=== PATIENT | female | born 1980 | race Two or more races ===

== ENCOUNTER 2016-09-23 08:52 | Emergency (ER) | payer BC, OTHER ==
[2016-09-23] MEDS ORDERED: RX INFO: IV CONTRAST WAS GIVEN 1 EACH MISC MISCELLANE PRN (09:04)
[2016-09-23] MEDS ORDERED: SODIUM CHLORIDE 0.9% 1,000 ML IV STA (09:04)
--- NOTE | 2016-09-23 09:09 | ED ---
Eye Problem HPI - General Chief complaint: Eye Problems Stated complaint: Eye swollen Time Seen by Provider: 09/23/16 08:59 Source: patient, RN notes reviewed Mode of arrival: ambulatory Limitations: no limitations - History of Present Illness Initial comments: 36-year-old female presents to the emergency Department chief complaint of right eyelid swelling. Patient states that she felt like she had a stye about a day ago but then it turned into her whole eyelid being swollen. Patient states that it hurts to move her right eye. Patient denies any changes in vision. Patient denies any fever chills associated with this patient does admit to history of diabetes. Patient states that she was concerned so she thought that she should be evaluated. Patient states that she is not currently having any other symptoms at this time. Patient denies any recent fever, chills , shortness of breath, chest pain, back pain, abdominal pain, nausea vomiting, numbness or tingling, dysuria or hematuria, constipation or diarrhea, headaches or visual changes, or any other current symptoms. - Related Data Home Medications Medication Instructions Recorded Confirmed Atorvastatin Calcium [Lipitor] 10 mg PO DAILY 10/10/13 09/23/16 Lisinopril [Zestril] 2.5 mg PO DAILY 10/10/13 09/23/16 metFORMIN HCL [Glucophage] 500 mg PO TID 10/10/13 09/23/16 Insulin Glargine,Hum.rec.anlog 30 unit SQ DAILY 05/04/15 09/23/16 [Toujeo Solostar] sitaGLIPtin [Januvia] 100 mg PO DAILY 05/04/15 09/23/16 Previous Rx's Medication Instructions Recorded Acetaminophen-Codeine 300-30mg 1 tab PO Q4H PRN #20 tablet 05/04/15 [Tylenol #3] Cyclobenzaprine [Flexeril] 10 mg PO TID PRN #15 tab 05/04/15 Cephalexin [Keflex] 500 mg PO Q6HR #40 cap 09/23/16 Clindamycin [Cleocin] 450 mg PO Q8HR #90 capsule 09/23/16 Allergies Allergy/AdvReac Type Severity Reaction Status Date / Time eye antibiotic drops Allergy Swelling Uncoded 09/23/16 08:57 Review of Systems ROS Statement: Those systems with pertinent positive or pertinent negative responses have been documented in the HPI. ROS Other: All systems not noted in ROS Statement are negative. Past Medical History Past Medical History: Diabetes Mellitus, Hyperlipidemia History of Any Multi-Drug Resistant Organisms: None Reported Past Surgical History: No Surgical Hx Reported Past Anesthesia/Blood Transfusion Reactions: No Reported Reaction Past Psychological History: No Psychological Hx Reported Smoking Status: Never smoker Past Alcohol Use History: Occasional Past Drug Use History: Marijuana General Exam Limitations: no limitations General appearance: alert, in no apparent distress Head exam: Present: atraumatic, normocephalic, normal inspection Eye exam: Present: PERRL, EOMI (With pain to the right eye), periorbital swelling (Of the right eye), periorbital tenderness (Of the right eye). Absent : scleral icterus, conjunctival injection Pupils: Present: normal accommodation Neck exam: Present: normal inspection. Absent: tenderness, meningismus, lymphadenopathy Respiratory exam: Present: normal lung sounds bilaterally. Absent: respiratory distress, wheezes, rales, rhonchi, stridor Cardiovascular Exam: Present: regular rate, normal rhythm, normal heart sounds. Absent: systolic murmur, diastolic murmur, rubs, gallop, clicks Neurological exam: Present: alert, oriented X3 Psychiatric exam: Present: normal affect, normal mood Skin exam: Present: warm, dry, intact, normal color. Absent: rash Course Vital Signs 09/23/16 08:53 Temperature 97.9 F Pulse Rate 86 Respiratory 20 Rate Blood Pressure 156/82 O2 Sat by Pulse 100 Oximetry Medical Decision Making - Medical Decision Making 36-year-old female presents with what appears to be a preseptal cellulitis of the right eye. At this time patient's antibiotics were initiated IV. We did give her steroids as well. We will give her double dose treatment of antibiotics for home. We did discuss close follow-up with her doctor return parameters. Patient stated that she understood and all her questions have been answered. She will be discharged. - Lab Data Result diagrams: 09/23/16 09:40 09/23/16 09:40 Lab Results 09/23/16 09/23/16 09/23/16 Range/Units 09:40 09:40 09:40 WBC 10.7 H (3.8-10.6) k/uL RBC 4.77 (3.80-5.40) m/uL Hgb 15.1 (11.4-16.0) gm/dL Hct 40.7 (34.0-46.0) % MCV 85.2 (80.0-100.0) fL MCH 31.7 (25.0-35.0) pg MCHC 37.1 H (31.0-37.0) g/dL RDW 13.2 (11.5-15.5) % Plt Count 231 (150-450) k/uL Neutrophils % 62 % Lymphocytes % 29 % Monocytes % 5 % Eosinophils % 2 % Basophils % 1 % Neutrophils # 6.6 (1.3-7.7) k/uL Lymphocytes # 3.1 (1.0-4.8) k/uL Monocytes # 0.6 (0-1.0) k/uL Eosinophils # 0.2 (0-0.7) k/uL Basophils # 0.1 (0-0.2) k/uL Sodium 138 (137-145) mmol/L Potassium 4.2 (3.5-5.1) mmol/L Chloride 101 (98-107) mmol/L Carbon Dioxide 26 (22-30) mmol/L Anion Gap 11 mmol/L BUN 12 (7-17) mg/dL Creatinine 0.40 L (0.52-1.04) mg/dL Est GFR (MDRD) Af Amer >60 (>60 ml/min/1.73 sqM) Est GFR (MDRD) Non-Af >60 (>60 ml/min/1.73 sqM) Glucose 342 H (74-99) mg/dL Plasma Lactic Acid Manfred 1.6 (0.7-2.0) mmol/L Calcium 9.7 (8.4-10.2) mg/dL Total Bilirubin 0.8 (0.2-1.3) mg/dL AST 20 (14-36) U/L ALT 35 (9-52) U/L Alkaline Phosphatase 101 (38-126) U/L Total Protein 7.8 (6.3-8.2) g/dL Albumin 4.3 (3.5-5.0) g/dL - Radiology Data Radiology results: report reviewed, image reviewed Disposition Clinical Impression: Preseptal cellulitis of right eye Disposition: HOME SELF-CARE Condition: Stable Instructions: Periorbital Cellulitis in Adults (ED) Additional Instructions: Please use medication as discussed. Please follow up with family doctor if symptoms have not improved over the next two days. Please return to the emergency room if your symptoms increase or worsen or for any other concerns. Prescriptions: Cephalexin [Keflex] 500 mg PO Q6HR #40 cap Clindamycin [Cleocin] 450 mg PO Q8HR #90 capsule Referrals: Elizabeth Greer MD [Primary Care Provider] - 1-2 days Time of Disposition: 10:54
[2016-09-23 09:55] LABS: Basophils # (A) 0.1 k/uL (0-0.2); Basophils % (A) 1 %; CH 30.6; CHCM 36.1; Eosinophils # (A) 0.2 k/uL (0-0.7); Eosinophils % (A) 2 %; HCT 40.7 % (34.0-46.0); HDW 2.88; HGB 15.1 gm/dL (11.4-16.0); Luc # (Auto) 0.18; Luc % (Auto) 2; Lymphocytes # (A) 3.1 k/uL (1.0-4.8); Lymphocytes % (A) 29 %; MCH 31.7 pg (25.0-35.0); MCHC 37.1 g/dL (31.0-37.0); MCV 85.2 fL (80.0-100.0); Mean Platelet Volume 7.7; Monocytes # (A) 0.6 k/uL (0-1.0); Monocytes % (A) 5 %; Neutrophils # (A) 6.6 k/uL (1.3-7.7); Neutrophils % (A) 62 %; RBC 4.77 m/uL (3.80-5.40); RDW 13.2 % (11.5-15.5); WBC 10.7 k/uL (3.8-10.6); WBC (Perox) 9.74
[2016-09-23 10:01] LABS: ALT 35 U/L (9-52); AST 20 U/L (14-36); Alkaline Phosphatase 101 U/L (38-126); Anion Gap 11 mmol/L; Blood Urea Nitrogen 12 mg/dL (7-17); Calcium 9.7 mg/dL (8.4-10.2); Carbon Dioxide 26 mmol/L (22-30); Chloride 101 mmol/L (98-107); Glucose 342 mg/dL (74-99); Non-African American GFR(MDRD) >60 (>60 ml/min/1.73 sqM); Potassium 4.2 mmol/L (3.5-5.1); Sodium 138 mmol/L (137-145); Total Bilirubin 0.8 mg/dL (0.2-1.3); Total Protein 7.8 g/dL (6.3-8.2)
--- NOTE | 2016-09-23 10:43 | CT ---
EXAMINATION TYPE: CT orbits w con DATE OF EXAM: 09/23/2016 COMPARISON: NONE HISTORY: Right sided eye swelling and redness CT DLP: 423 mGycm Automated exposure control for dose reduction was used. Contrast-enhanced CT of the orbits was performed with coronal reconstruction obtained. CONTRAST: Performed with IV Contrast, patient injected with 100 mL of Omnipaque 300. FINDINGS: There is right periorbital\preseptal soft tissue thickening and mild enhancement compatible with pres eptal cellulitis. There is currently no evidence for post septal cellulitis at this time. The globes are intact and symmetric bilaterally as are the optic nerves and extraocular musculature. Retroconal fat is symmetric and unremarkable. No evidence for abscess. No bony destructive process. Paranasal si nuses are well-aerated. Visualized intracranial structures are within normal limits. IMPRESSION: FINDINGS FELT TO REFLECT RIGHT-SIDED PRESEPTAL CELLULITIS.
[2016-09-23] MEDS ORDERED: methylPREDNISolone SOD SUCCI 125 MG/2 ML VIAL IV STA (10:47)
[2016-09-23] MEDS ORDERED: CLINDAMYCIN 900 MG in DEXTROSE 5% IN WATER 50 ML IVPB STA ×2 (10:54)
[2016-09-23 11:44] VITALS: BP 130/71; PULSE 88; RESP 15; TEMP 97.4
== END 2016-09-23 12:25 | disposition home or self-care (01) ==
LOC: EC 08:52
DX: L03.213 Periorbital cellulitis (principal); E11.9 Type 2 diabetes mellitus without complications; E78.5 Hyperlipidemia, unspecified; Z88.8 Allergy status to other drugs, medicaments and biological substances; Z79.4 Long term (current) use of insulin; Z79.84 Long term (current) use of oral hypoglycemic drugs; Z79.899 Other long term (current) drug therapy
CPT/HCPCS: 99284; 96365; 96367; 96375; 96361; 36415; 80053; 83605; 85025; 87040; 70481; J2930; J0696; Q9967

== ENCOUNTER → 2017-09-10 | Outpatient (CLI) | payer BC ==
[2017-09-10 10:24] LABS: Blood Urea Nitrogen 15 mg/dL (7-17); Potassium 4.7 mmol/L (3.5-5.1)
== END | disposition home or self-care (01) ==
LOC: LABPAT 09:23
PROVIDERS: ATTEND Surgery
DX: Z01.818 Encounter for other preprocedural examination (principal); Z01.812 Encounter for preprocedural laboratory examination; E10.9 Type 1 diabetes mellitus without complications; Z79.4 Long term (current) use of insulin
CPT/HCPCS: 36415; 82565; 84132; 84520; 93005

== ENCOUNTER 2017-09-13 07:27 | Day surgery (SDC) | payer BC ==
[2017-09-07 11:34] VITALS: BMI 42.1
[~2017-09-13 07:27] MED LIST: DEXAMETHASONE SOD PHOSPHATE 10 MG/ML 1 ML VIAL IV ONE; HEPARIN SODIUM,PORCINE 5,000 UNIT/ML 1 ML VIAL SQ ONE; LACTATED RINGERS 1,000 ML IV SCH; LIDOCAINE 1% 20 ML VIAL (10MG/ML) FOR IV START INTRADERMA PRN; MORPHINE SULFATE 2 MG/ML SYRINGE IV PRN; ONDANSETRON 4 MG/2 ML VIAL IVP ONE; SCOPOLAMINE 1.5MG/72HR PATCH TRANSDERM ONE
[2017-09-13 08:15] LABS: Glucose,Whole Blood 314 mg/dL (75-99)
[2017-09-13] MEDS ORDERED: INSULIN ASPART 100 UNIT/ML 1 ML 10 ML VIAL SQ ONE ×2 (08:17→11:32)
--- NOTE | 2017-09-13 09:15 | P.GSHP ---
History of Present Illness H&P Date: 09/13/17 Chief Complaint: Right upper quadrant pain This is a 37-year-old female who's had complaints of right upper quadrant pain. Her recent ultrasound shows evidence of cholelithiasis. She presents today for laparoscopic cholecystectomy Past Medical History Past Medical History: Diabetes Mellitus, Hyperlipidemia Additional Past Medical History / Comment(s): IBS. NERVE PAIN IN LEGS History of Any Multi-Drug Resistant Organisms: None Reported Past Surgical History: No Surgical Hx Reported Past Anesthesia/Blood Transfusion Reactions: No Reported Reaction Past Psychological History: No Psychological Hx Reported Smoking Status: Never smoker Past Alcohol Use History: Occasional, Rare Past Drug Use History: Marijuana - Past Family History Mother Family Medical History: No Reported History Medications and Allergies Home Medications Medication Instructions Recorded Confirmed Type Insulin Glargine [Lantus] 14 unit SQ HS 09/07/17 09/07/17 History Nf-Dicyclomine Dose Unknown 20 mg PO Q8HR PRN 09/07/17 09/13/17 History metFORMIN HCL [Glucophage] 2 tab PO BID 09/07/17 09/07/17 History Allergies Allergy/AdvReac Type Severity Reaction Status Date / Time eye antibiotic drops Allergy Swelling Uncoded 09/07/17 11:23 Surgical - Exam Vital Signs Temp Pulse Resp BP 97 F L 85 16 107/73 09/13/17 08:10 09/13/17 08:10 09/13/17 08:10 09/13/17 08:10 - General well developed, no distress - Eyes PERRL - ENT normal pinna - Neck no masses - Respiratory normal expansion - Cardiovascular Rhythm: regular - Abdomen Mild right upper quadrant pain Abdomen: soft, non tender Results - Labs Abnormal Lab Results - Last 24 Hours (Table) 09/13/17 Range/Units 08:10 POC Glucose (mg/dL) 314 H (75-99) mg/dL Assessment and Plan Assessment: Chronic cholecystitis Cholelithiasis We'll perform laparoscopic cholecystectomy
[2017-09-13] MEDS ORDERED: MIDAZOLAM 2 MG/2 ML VIAL ONE (09:36)
[2017-09-13] MEDS ORDERED: fentaNYL (PF) 50 MCG/ML 2 ML AMP ONE (09:36)
[2017-09-13] MEDS ORDERED: GLYCOPYRROLATE 0.2 MG/ML 2 ML VIAL ONE (09:36)
[2017-09-13] MEDS ORDERED: LIDOCAINE 1% INJ 10MG/ML (20 ML MDV) ONE (09:36)
[2017-09-13] MEDS ORDERED: SUCCINYLCHOLINE CHLORIDE 100 MG/5 ML SYR IV ONE (09:36)
[2017-09-13] MEDS ORDERED: HYDROmorphone (PF) 1 MG/ML ONE (09:36)
[2017-09-13] MEDS ORDERED: NEOSTIGMINE 1 MG/ML 10 ML VIAL ONE (09:36)
[2017-09-13] MEDS ORDERED: VECURONIUM 10 MG VIAL IV ONE (09:36)
[2017-09-13] MEDS ORDERED: PROPOFOL 10 MG/ML 20 ML VIAL IV ONE (09:36)
[2017-09-13] MEDS ORDERED: LIDOCAINE 1%-EPI 1:100,000 30 ML VIAL SQ ONE (09:59)
[2017-09-13] MEDS ORDERED: LACTATED RINGERS 1,000 ML IV ONE (10:20)
[2017-09-13 11:00] VITALS: TEMP 97.8
[2017-09-13 11:14] VITALS: RESP 16
[2017-09-13] MEDS ORDERED: HYDROmorphone 1 MG/ML 1 ML SYRINGE IVP ONE ×2 (11:20→11:31)
[2017-09-13 11:21] LABS: Glucose,Whole Blood 337 mg/dL (75-99)
--- NOTE | 2017-09-13 11:28 | P.OP ---
Date of Procedure: 09/13/17 Preoperative Diagnosis: Right upper quadrant pain Postoperative Diagnosis: Chronic cholecystitis Cholelithiasis Procedure(s) Performed: Laparoscopic cholecystectomy Anesthesia: MAC Surgeon: Jose Ramon Abebe Estimated Blood Loss (ml): 10 Pathology: other (gall bladder) Condition: stable Disposition: PACU Description of Procedure: The patient was placed on the operating table. The patient received a general endotracheal tube anesthesia. The patients abdomen was prepped and draped in the usual sterile fashion. Through an infraumbilical stab incision, the fascia of the anterior abdominal wall was grasped with a pair of Kochers and then the Veress needle was placed in the peritoneal cavity. Position of the Veress needle was confirmed with positive drop test. The abdomen was then insufflated. After adequate insufflation, the 10 mm trocar was placed in the peritoneal cavity. Following this the laparoscope was placed in the peritoneal cavity. The patient was placed in the head-up, right side up position and then a 5 mm trocar was placed in the right lateral and right subcostal position under direct visualization. A 8 mm trocar was placed in the epigastric position. The gallbladder was grasped in the fundus and infundibulum. Traction on the gallbladder was placed in the lateral and the cephalad positions. The triangle of Calot was visualized.. The cystic duct was bluntly dissected until the union of the cystic duct and common bile duct was seen. The cystic duct was then divided and sealed with the Harmonic scissors. A PDS Endoloop was then placed throughout the cystic duct stump. The cystic artery divided and sealed with the Harmonic scissors. The gallbladder was then removed from the liver bed using Harmonic scissors. The gallbladder was then extracted through the epigastric port site. Operative field was checked for any bleeding spots and Harmonic scissors was used to coagulate the liver bed. The abdomen was irrigated. The trocars were removed. The skin was closed using interrupted 3-0 Vicryl suture. Dermabond dressing were applied. The patient tolerated the procedure well.
[2017-09-13] MEDS ORDERED: HYDROcodone/APAP 7.5-325MG 1 EACH TAB PO ONE (11:57)
[2017-09-13 13:06] VITALS: BP 133/80; PULSE 90
== END 2017-09-13 13:23 | disposition home or self-care (01) ==
LOC: OR 07:27 → MERGE 09:45 → OR 13:23
PROVIDERS: ATTEND Surgery
DX: K80.10 Calculus of gallbladder with chronic cholecystitis without obstruction (principal); E78.5 Hyperlipidemia, unspecified; E11.9 Type 2 diabetes mellitus without complications; Z79.4 Long term (current) use of insulin; K58.9 Irritable bowel syndrome, unspecified; G58.8 Other specified mononeuropathies; Z88.1 Allergy status to other antibiotic agents
CPT/HCPCS: 81025; 88304; 47562; J2250; J1644; J1100; J2710; J0690; J2405; J2001; J3010; J1170; J0330; J2704

== ENCOUNTER → 2019-11-22 | Outpatient (CLI) | payer BC ==
[2019-11-22 11:59] LABS: Basophils # (A) 0.1 k/uL (0-0.2); Basophils % (A) 1 %; Eosinophils # (A) 0.4 k/uL (0-0.7); Eosinophils % (A) 4 %; HCT 45.8 % (34.0-46.0); Lymphocytes # (A) 2.3 k/uL (1.0-4.8); Lymphocytes % (A) 26 %; MCH 29.3 pg (25.0-35.0); MCHC 32.7 g/dL (31.0-37.0); MCV 89.7 fL (80.0-100.0); Mean Platelet Volume 7.8; Monocytes # (A) 0.4 k/uL (0-1.0); Monocytes % (A) 4 %; Neutrophils # (A) 5.8 k/uL (1.3-7.7); Neutrophils % (A) 64 %; Platelet Count 223 k/uL (150-450); RBC 5.11 m/uL (3.80-5.40); RDW 12.9 % (11.5-15.5)
[2019-11-22 20:24] LABS: African American GFR (CKD) 109.2 (60.0-200.0); Albumin 3.9 g/dL (3.80-4.90); Albumin/Globulin Ratio 1.56 (1.60-3.17); Anion Gap 6.5 mmol/L (4.00-12.00); BUN/Creat Ratio 17.5 Ratio (12.00-20.00); Carbon Dioxide 28.5 mmol/L (21.6-31.8); Chol/HDL Ratio 5.33; Globulin 2.5 g/dL (1.6-3.3); Non-African American GFR(CKD) 94.2 (60.0-200.0); Potassium 4.2 mmol/L (3.5-5.5); Total Bilirubin 0.6 mg/dL (0.2-1.2); Total Protein 6.4 g/dL (6.2-8.2)
== END | disposition home or self-care (01) ==
LOC: LABWHC1 10:38
PROVIDERS: ATTEND Nurse Practitioner Family
DX: E11.9 Type 2 diabetes mellitus without complications (principal)
CPT/HCPCS: 36415; 80053; 80061; 83036; 84439; 84443; 85025

== ENCOUNTER 2021-09-27 09:04 | Emergency (ER) | payer BC ==
[2021-09-27 09:11] VITALS: TEMP 97.9
[2021-09-27] MEDS ORDERED: SODIUM CHLORIDE 0.9% 1,000 ML IV STA (09:49)
[2021-09-27] MEDS ORDERED: ONDANSETRON 4 MG/2 ML VIAL IVP STA (09:49)
[2021-09-27] MEDS ORDERED: KETOROLAC 15 MG/ML 1 ML VIAL IVP STA (09:49)
--- NOTE | 2021-09-27 10:27 | ED ---
Back Pain HPI - General Chief Complaint: Back Pain/Injury Stated Complaint: Back pain Time Seen by Provider: 09/27/21 09:22 Source: patient, RN notes reviewed Limitations: no limitations - History of Present Illness Initial Comments: This is a 41-year-old female who presents to the emergency department for lower back and lower abdominal pain. Patient states that when she woke up in the morning yesterday, she went to take a few steps, and suddenly had lower back and lower abdominal pain. States that she has never had anything like this in the past. She also had associated burning with urination. Denies any loss of bowel or bladder control or saddle anesthesia. Pain is worse when bearing weight. She has now started to experience associated nausea. Denies any fevers, chills, sore throat, cough, dyspnea, chest pain, palpitations, vomiting, diarrhea, or headaches. MD Complaint: back pain Onset/Timin Similar Symptoms Previously: No Place: home Radiation: abdomen Consistency: constant - Related Data Home Medications Medication Instructions Recorded Confirmed Insulin Glargine [Lantus] 14 unit SQ HS 09/07/17 09/07/17 Nf-Dicyclomine Dose Unknown 20 mg PO Q8HR PRN 09/07/17 09/13/17 metFORMIN HCL [Glucophage] 2 tab PO BID 09/07/17 09/07/17 Previous Rx's Medication Instructions Recorded Docusate [Colace] 100 mg PO BID #20 capsule 09/13/17 HYDROcodone/APAP 7.5-325MG [[place] 1 tab PO Q4H PRN 3 Days #18 tab 09/13/17 7.5-325] Acetaminophen-Codeine 300-30mg 1 tab PO Q6H PRN 3 Days #12 tablet 09/27/21 [Tylenol w/codeine #3] Cephalexin [Keflex] 500 mg PO Q8HR 7 Days #21 cap 09/27/21 Ibuprofen 800 mg PO Q8H PRN #20 tab 09/27/21 Ondansetron Odt [Zofran Odt] 4 mg PO Q8HR PRN #20 tab 09/27/21 Allergies Allergy/AdvReac Type Severity Reaction Status Date / Time latex Allergy Rash/Hives Verified 09/27/21 09:11 sulfamethoxazole Allergy Swelling Verified 09/27/21 09:24 [From Bactrim] trimethoprim [From Bactrim] Allergy Swelling Verified 09/27/21 09:24 eye antibiotic drops Allergy Swelling Uncoded 09/07/17 11:23 Review of Systems ROS Statement: Those systems with pertinent positive or pertinent negative responses have been documented in the HPI. ROS Other: All systems not noted in ROS Statement are negative. Past Medical History Past Medical History: Diabetes Mellitus, Hyperlipidemia Additional Past Medical History / Comment(s): IBS. NERVE PAIN IN LEGS History of Any Multi-Drug Resistant Organisms: None Reported Past Surgical History: Cholecystectomy Past Anesthesia/Blood Transfusion Reactions: No Reported Reaction Past Psychological History: No Psychological Hx Reported Past Alcohol Use History: Occasional, Rare Past Drug Use History: Marijuana - Past Family History Mother Family Medical History: No Reported History General Exam Limitations: no limitations General appearance: alert, in distress Head exam: Present: atraumatic, normocephalic, normal inspection Respiratory exam: Present: normal lung sounds bilaterally. Absent: respiratory distress, wheezes, rales, rhonchi, stridor Cardiovascular Exam: Present: regular rate, normal rhythm, normal heart sounds. Absent: systolic murmur, diastolic murmur, rubs, gallop, clicks GI/Abdominal exam: Present: soft, tenderness (RLQ and LLQ), normal bowel sounds. Absent: distended, guarding, rebound, rigid Extremities exam: Present: tenderness (Around L3-L4) Back exam: Present: normal inspection, full ROM. Absent: tenderness, CVA tenderness (R), CVA tenderness (L) Neurological exam: Present: alert, oriented X3, CN II-XII intact Psychiatric exam: Present: normal affect, normal mood Skin exam: Present: warm, dry, intact, normal color. Absent: rash Course Vital Signs 09/27/21 09/27/21 09/27/21 09:07 11:11 13:01 Temperature 97.9 F Pulse Rate 94 71 69 Respiratory 18 15 16 Rate Blood Pressure 139/94 124/72 120/77 O2 Sat by Pulse 99 99 100 Oximetry Medical Decision Making - Medical Decision Making This is a 41-year-old female who presents to the emergency department with lower abdominal pain and lower back pain. Lab work, x-ray of the lumbar spine, and CT of the abdomen and pelvis were nonactionable. Urinalysis is consistent with an infection. Given that the back pain is in the lumbar region, it is unclear if this is related to a muscular strain or a pyelonephritis. Given the dysuria, lower abdominal pain, and urinalysis, patient will be treated for urinary tract infection. Initial dose of ceftriaxone administered in the emergency department along with IV fluids. Prescription for Keflex, Ibuprofen, and Zofran sent to the pharmacy. Instructed her to follow up with her primary care provider early next week to reevaluate her symptoms. Return precautions reviewed in depth, the patient is instructed to return to the emergency department with any new, worsening, or concerning symptoms. Patient verbalized understanding. This case was discussed in detail with the attending ED physician. Presentation, findings, and treatment plan discussed in detail as well. - Lab Data Result diagrams: 09/27/21 10:17 09/27/21 10:17 Lab Results 09/27/21 09/27/21 09/27/21 Range/Units 10:17 10:17 10:17 WBC 10.0 (3.8-10.6) k/uL RBC 5.00 (3.80-5.40) m/uL Hgb 15.5 (11.4-16.0) gm/dL Hct 44.6 (34.0-46.0) % MCV 89.2 (80.0-100.0) fL MCH 31.0 (25.0-35.0) pg MCHC 34.8 (31.0-37.0) g/dL RDW 13.0 (11.5-15.5) % Plt Count 239 (150-450) k/uL MPV 8.3 Neutrophils % 67 % Lymphocytes % 23 % Monocytes % 5 % Eosinophils % 3 % Basophils % 1 % Neutrophils # 6.7 (1.3-7.7) k/uL Lymphocytes # 2.3 (1.0-4.8) k/uL Monocytes # 0.5 (0-1.0) k/uL Eosinophils # 0.3 (0-0.7) k/uL Basophils # 0.1 (0-0.2) k/uL Sodium 135 L (137-145) mmol/L Potassium 4.3 (3.5-5.1) mmol/L Chloride 102 (98-107) mmol/L Carbon Dioxide 23 (22-30) mmol/L Anion Gap 10 mmol/L BUN 17 (7-17) mg/dL Creatinine 0.43 L (0.52-1.04) mg/dL Est GFR (CKD-EPI)AfAm >90 (>60 ml/min/1.73 sqM) Est GFR (CKD-EPI)NonAf >90 (>60 ml/min/1.73 sqM) Glucose 390 H (74-99) mg/dL Plasma Lactic Acid Manfred (0.7-2.0) mmol/L Calcium 8.9 (8.4-10.2) mg/dL Total Bilirubin 0.5 (0.2-1.3) mg/dL AST 24 (14-36) U/L ALT 24 (4-34) U/L Alkaline Phosphatase 122 (38-126) U/L Total Protein 7.5 (6.3-8.2) g/dL Albumin 4.2 (3.5-5.0) g/dL Urine Color Yellow Urine Appearance Cloudy H (Clear) Urine pH 6.0 (5.0-8.0) Ur Specific [place] 1.037 H (1.001-1.035) Urine Protein 2+ H (Negative) Urine Glucose (UA) 4+ H (Negative) Urine Ketones Trace H (Negative) Urine Blood Small H (Negative) Urine Nitrite Negative (Negative) Urine Bilirubin Negative (Negative) Urine Urobilinogen <2.0 (<2.0) mg/dL Ur Leukocyte Esterase Large H (Negative) Urine RBC 21 H (0-5) /hpf Urine WBC >182 H (0-5) /hpf Urine WBC Clumps Moderate H (None) /hpf Ur Squamous Epith Cells 15 H (0-4) /hpf Urine Bacteria Moderate H (None) /hpf Urine HCG, Qual (Not Detectd) 09/27/21 09/27/21 Range/Units 10:17 10:17 WBC (3.8-10.6) k/uL RBC (3.80-5.40) m/uL Hgb (11.4-16.0) gm/dL Hct (34.0-46.0) % MCV (80.0-100.0) fL MCH (25.0-35.0) pg MCHC (31.0-37.0) g/dL RDW (11.5-15.5) % Plt Count (150-450) k/uL MPV Neutrophils % % Lymphocytes % % Monocytes % % Eosinophils % % Basophils % % Neutrophils # (1.3-7.7) k/uL Lymphocytes # (1.0-4.8) k/uL Monocytes # (0-1.0) k/uL Eosinophils # (0-0.7) k/uL Basophils # (0-0.2) k/uL Sodium (137-145) mmol/L Potassium (3.5-5.1) mmol/L Chloride (98-107) mmol/L Carbon Dioxide (22-30) mmol/L Anion Gap mmol/L BUN (7-17) mg/dL Creatinine (0.52-1.04) mg/dL Est GFR (CKD-EPI)AfAm (>60 ml/min/1.73 sqM) Est GFR (CKD-EPI)NonAf (>60 ml/min/1.73 sqM) Glucose (74-99) mg/dL Plasma Lactic Acid Manfred 1.2 (0.7-2.0) mmol/L Calcium (8.4-10.2) mg/dL Total Bilirubin (0.2-1.3) mg/dL AST (14-36) U/L ALT (4-34) U/L Alkaline Phosphatase (38-126) U/L Total Protein (6.3-8.2) g/dL Albumin (3.5-5.0) g/dL Urine Color Urine Appearance (Clear) Urine pH (5.0-8.0) Ur Specific [place] (1.001-1.035) Urine Protein (Negative) Urine Glucose (UA) (Negative) Urine Ketones (Negative) Urine Blood (Negative) Urine Nitrite (Negative) Urine Bilirubin (Negative) Urine Urobilinogen (<2.0) mg/dL Ur Leukocyte Esterase (Negative) Urine RBC (0-5) /hpf Urine WBC (0-5) /hpf Urine WBC Clumps (None) /hpf Ur Squamous Epith Cells (0-4) /hpf Urine Bacteria (None) /hpf Urine HCG, Qual Not Detected (Not Detectd) - Radiology Data Radiology results: report reviewed, image reviewed Disposition Clinical Impression: Pyelonephritis Disposition: HOME SELF-CARE Instructions (If sedation given, give patient instructions): Urinary Tract Infection in Women (ED), Kidney Infection (ED) Additional Instructions: Return to the emergency department with any new, worsening, or concerning symptoms. Take the Keflex as prescribed for 7 days. Take the ibuprofen as needed for pain and use the Tylenol #3 when the pain is the most severe. You may also take the Zofran up to every 8 hours as needed for nausea and vomiting. You can purchase [id number] AZO to treat any burning with urination. Follow up with your primary care provider next week. Prescriptions: Ibuprofen 800 mg PO Q8H PRN #20 tab PRN Reason: Pain Cephalexin [Keflex] 500 mg PO Q8HR 7 Days #21 cap Acetaminophen-Codeine 300-30mg [Tylenol w/codeine #3] 1 tab PO Q6H PRN 3 Days #12 tablet PRN Reason: Pain Ondansetron Odt [Zofran Odt] 4 mg PO Q8HR PRN #20 tab PRN Reason: Nausea And Vomiting Is patient prescribed a controlled substance at d/c from ED?: Yes When asked, does pt state using other controlled substances?: No If prescribed controlled substance>3 days was MAPS reviewed?: Prescribed <3 Days Referrals: Taiwo Morrison MD [Primary Care Provider] - 1-2 days
[2021-09-27 10:40] LABS: Appearance,Urine Cloudy (Clear); Bacteria,Urine Moderate /hpf; Bilirubin,Urine Negative (Negative); Blood,Urine Small (Negative); Color,Urine Yellow; Glucose,Urine (UA) 4+ (Negative); Ketones,Urine Trace (Negative); Leukocyte Esterase,Urine Large (Negative); Nitrite,Urine Negative (Negative); Protein,Urine 2+ (Negative); RBC,Urine 21 /hpf (0-5); Specific Gravity,Urine 1.037 (1.001-1.035); Squamous Epithelial Cell,Urine 15 /hpf (0-4); Urobilinogen,Urine <2.0 mg/dL (<2.0); WBC,Urine >182 /hpf (0-5)
--- NOTE | 2021-09-27 10:53 | XR ---
EXAMINATION TYPE: XR lumbar spine 2 or 3V DATE OF EXAM: 09/27/2021 CLINICAL HISTORY: Low back pain after injury. TECHNIQUE: Frontal and lateral images of the lumbar spine are obtained. COMPARISON: Lumbar spine x-ray May 04, 2015 FINDINGS: There are 5 lumbar type vertebral bodies redemonstrated. The lumbar spine shows stable an d satisfactory alignment without evidence of acute fracture or dislocation. Vertebral body heights an d disk space heights are within normal limits. Cholecystectomy clip is suspected. IMPRESSION: No acute fracture or dislocation is seen in the lumbar spine. No significant change from prior.
[2021-09-27 11:02] LABS: ALT 24 U/L (4-34); AST 24 U/L (14-36); African American GFR (CKD) >90 (>60 ml/min/1.73 sqM); Albumin 4.2 g/dL (3.5-5.0); Alkaline Phosphatase 122 U/L (38-126); Anion Gap 10 mmol/L; Basophils # (A) 0.1 k/uL (0-0.2); Basophils % (A) 1 %; Blood Urea Nitrogen 17 mg/dL (7-17); Calcium 8.9 mg/dL (8.4-10.2); Carbon Dioxide 23 mmol/L (22-30); Chloride 102 mmol/L (98-107); Eosinophils # (A) 0.3 k/uL (0-0.7); Eosinophils % (A) 3 %; Glucose 390 mg/dL (74-99); HCT 44.6 % (34.0-46.0); HGB 15.5 gm/dL (11.4-16.0); Lymphocytes # (A) 2.3 k/uL (1.0-4.8); Lymphocytes % (A) 23 %; MCHC 34.8 g/dL (31.0-37.0); MCV 89.2 fL (80.0-100.0); Mean Platelet Volume 8.3; Monocytes # (A) 0.5 k/uL (0-1.0); Monocytes % (A) 5 %; Neutrophils # (A) 6.7 k/uL (1.3-7.7); Neutrophils % (A) 67 %; Non-African American GFR(CKD) >90 (>60 ml/min/1.73 sqM); Platelet Count 239 k/uL (150-450); Potassium 4.3 mmol/L (3.5-5.1); Sodium 135 mmol/L (137-145); Total Bilirubin 0.5 mg/dL (0.2-1.3); Total Protein 7.5 g/dL (6.3-8.2)
[2021-09-27] MEDS ORDERED: cefTRIAXone IN SWFI 1,000 MG/10 ML SYRINGE IVP STA (12:15)
--- NOTE | 2021-09-27 12:33 | CT ---
EXAMINATION TYPE: CT abdomen pelvis w con DATE OF EXAM: 09/27/2021 HISTORY: LLQ and RLQ pain CT DLP: 2696.4mGycm Automated Exposure Control for Dose Reduction was Utilized. CONTRAST: CT scan of the abdomen and pelvis is performed without oral but with IV Contrast, patient injected wi th 70 ml mL of Isovue 300. COMPARISON: None. FINDINGS: LUNG BASES: No significant abnormality is appreciated. LIVER/GB: Prominent left hepatic lobe with heterogeneous hypodense appearance of the liver consistent with diffuse fatty infiltration. Cholecystectomy clips. No biliary dilatation. PANCREAS: No significant abnormality is seen. SPLEEN: No significant abnormality is seen. ADRENALS: No significant abnormality is seen. KIDNEYS: Symmetric cortical medullary uptake and excretion without hydronephrosis seen bilaterally. BOWEL: Is slightly suboptimal evaluation without enteric contrast. No suspicious small or large bowel dilatation. A few sigmoid colonic diverticula. No CT evidence for acute diverticulitis UTERUS/ADNEXA: Anteverted uterus. Occasional scattered tiny pelvic phleboliths LYMPH NODES: No greater than 1cm abdominal or pelvic lymph nodes are appreciated. OSSEOUS STRUCTURES: No significant abnormality is seen. OTHER: No significant additional abnormality is seen. IMPRESSION: No significant acute finding is seen to account for patient's clinical symptoms.
[2021-09-27 13:03] VITALS: BP 120/77; PULSE 69; RESP 16
== END 2021-09-27 13:03 | disposition home or self-care (01) ==
LOC: EC 09:04
DX: N12 Tubulo-interstitial nephritis, not specified as acute or chronic (principal); E11.9 Type 2 diabetes mellitus without complications; Z91.040 Latex allergy status; Z88.2 Allergy status to sulfonamides; Z88.1 Allergy status to other antibiotic agents; Z79.84 Long term (current) use of oral hypoglycemic drugs; Z79.4 Long term (current) use of insulin
CPT/HCPCS: 36415; 80053; 83605; 85025; 81001; 81025; 87086; 72100; 74177; 99284; 96374; 96375; 96361; J2405; J0696; J1885; Q9967